=== PATIENT | male | born 1945 | race Caucasian/White ===

== ENCOUNTER 2020-03-25 12:39 | Emergency (ER) | payer SELFPAY ==
[2020-03-25] MEDS ORDERED: Lidocaine 1% 10 ML MDV INJECT ONE (13:05)
--- NOTE | 2020-03-25 13:20 | EDM.PDOC ---
ED HPI GENERAL MEDICAL PROBLEM - General Chief Complaint: Laceration Stated Complaint: LIP LAC Time Seen by Provider: 03/25/20 12:48 Source of Information: Reports: Patient History Limitations: Reports: No Limitations - History of Present Illness INITIAL COMMENTS - FREE TEXT/NARRATIVE: Patient is a 74-year-old male who presents with a laceration to his upper lip. Patient states that he was hit in the face with a metal gate after a cow hit it approximately 2 hours prior to coming to the ER. He states that his last tetanus vaccination was "probably when I was in the service ". - Related Data Allergies Allergy/AdvReac Type Severity Reaction Status Date / Time No Known Allergies Allergy Verified 03/25/20 12:48 Past Medical History HEENT History: Reports: Impaired Vision Other HEENT History: wears glasses Cardiovascular History: Reports: Hypertension Social & Family History - Family History Family Medical History: Noncontributory - Tobacco Use Smoking Status *Q: Never Smoker Second Hand Smoke Exposure: No - Caffeine Use Caffeine Use: Reports: Coffee - Recreational Drug Use Recreational Drug Use: No ED ROS GENERAL - Review of Systems Review Of Systems: Comprehensive ROS is negative, except as noted in HPI. ED EXAM, SKIN/RASH Exam: See Below Exam Limited By: No Limitations General Appearance: Alert, WD/WN, No Apparent Distress Respiratory/Chest: No Respiratory Distress, Lungs Clear, Normal Breath Sounds, No Accessory Muscle Use, Chest Non-Tender Cardiovascular: Normal Peripheral Pulses, Regular Rate, Rhythm, No Edema, No Gallop, No JVD, No Murmur, No Rub Skin: Other (4 cm horizontal L-shaped laceration through the upper lip. A 2 cm portion of the laceration is through and through. CMS is intact. Small amount of bleeding present) ED SKIN PROCEDURES - Laceration/Wound Repair upper lip Appearance: Subcutaneous Distal NVT: Neuro & Vascular Intact Anesthetic Type: Local Local Anesthesia - Lidocaine (Xylocaine): 1% Plain Local Anesthetic Volume: 5cc Skin Prep: Saline Exploration/Debridement/Repair: Wound Explored, No Foreign Material Found Closed with: Sutures Lac/Wound length In cm: 6 (total of outer and inner lip lacerations) Suture Size: 5-0 # of Sutures: 7 Suture Type: Nylon, Interrupted Suture Size: 4-0 # of Sutures: 5 Repaired with: Vicryl Tetanus Status Addressed: Yes (pt refused on numerous occasions) Complications: No Course - Vital Signs Last Recorded V/S: Last Vital Signs Temp 98.6 F 03/25/20 12:49 Pulse 75 03/25/20 14:42 Resp 16 03/25/20 14:42 BP 212/101 H 03/25/20 14:42 Pulse Ox 96 03/25/20 14:42 - Orders/Labs/Meds Meds: Medications Discontinued Medications Generic Name Dose Route Start Last Admin Trade Name Noemi PRN Reason Stop Dose Admin Lidocaine HCl 10 ml 03/25/20 13:05 03/25/20 13:31 Xylocaine 1% INJECT 03/25/20 13:06 10 ml ONETIME ONE Administration - Re-Assessments/Exams Free Text/Narrative Re-Assessment/Exam: Laceration to the upper lip was closed with 7 external sutures, 2 absorbable Vicryl sutures internally, as well as 3 Vicryl absorbable sutures to the inner lip. Vermilion border well approximated; however, pt did have an old scar to the lip which was not well approximated. Discussed with the patient the importance of updating his Tdap vaccination today since he states he has not had it since he was in the service in the 1970s. Patient refused Tdap vaccination on numerous occasions despite education on the importance. Patient's blood pressure was significantly elevated. Initial blood pressure reading 191/62. Repeat blood pressure 212/101. Discussed with patient that would like to treat his blood pressure. Patient refused any treatment for blood pressure. States he has herbs at home that he takes for his heart. He verbalizes that his blood pressures have been this high in the past and they "always come back down". He states that his blood pressures are normally in the 160s systolic. I did discuss with him that that is still elevated and that he should follow-up to have treatment initiated for this blood pressure since he is refusing treatment today. Discussed with him the risks associated with untreated hypertension. He continued to refuse treatment. Patient was willing to sign AMA paperwork indicating that he is refusing treatment for hypertension. Discharge instructions as documented. Departure - Departure Time of Disposition: 14:25 Disposition: Home, Self-Care 01 Condition: Good Clinical Impression: Lip laceration Qualifiers: Encounter type: initial encounter Qualified Code(s): S01.511A - Laceration without foreign body of lip, initial encounter - Discharge Information *PRESCRIPTION DRUG MONITORING PROGRAM REVIEWED*: No *COPY OF PRESCRIPTION DRUG MONITORING REPORT IN PATIENT REMINGTON: No Instructions: Facial Laceration, Sutured Wound Care Referrals: PCP,None [Primary Care Provider] - Forms: ED Department Discharge Additional Instructions: You were seen in the emergency department today for a large laceration to your upper lip. The wound was cleansed and closed with a total of 7 external sutures and 5 internal sutures. Recommend that you keep the wound clean and dry. Wash it twice daily with normal soap and water. You may ice over the lip off and on for the next couple days to help with the swelling. We would like you to call and schedule an appointment in the clinic for Wednesday to have the 7 external sutures removed and have the wound rechecked. The number to call and schedule appointment is [phone]. Watch for signs of infection including increased redness, increased swelling, or purulent drainage. If this should occur, you should be seen in the clinic sooner than Wednesday or you may also return to the ER. Your blood pressure was found to be quite elevated in the ER. It was recommended that we treat your blood pressure, however you declined this. Risks of having chronically high blood pressure includes stroke, heart attack, kidney damage, vision damage, and . I recommend that you purchase a blood pressure machine and check your blood pressure daily for the next week. Keep a log of the readings. When you follow-up in the clinic on Wednesday, you may discuss your elevated blood pressures at that time as well. Return to the ER as needed. Sepsis Event Note - Evaluation Sepsis Screening Result: No Definite Risk - Focused Exam Vital Signs: Vital Signs Temp Pulse Resp BP Pulse Ox 03/25/20 14:42 75 16 212/101 H 96 03/25/20 12:49 98.6 F 76 191/162 H 95 Date Exam was Performed: 03/25/20 Time Exam was Performed: 20:28
== END 2020-03-25 14:45 | disposition home or self-care (01) ==
LOC: JD.ED 12:39
DX: S01.511A Laceration without foreign body of lip, initial encounter (principal); I10 Essential (primary) hypertension; W22.8XXA Striking against or struck by other objects, initial encounter
CPT/HCPCS: 12011; 99282; J2001; 12014